=== PATIENT | male | born 1940 | race Caucasian/White ===

== ENCOUNTER 2017-02-12 09:37 | Day surgery (SDC) | payer MEDICARE ==
[2017-02-07 12:08] VITALS: BMI 21.6
[2017-02-12 10:21] LABS: BLOOD UREA NITROGEN 20 mg/dL (7-21); CALCIUM 9.7 mg/dL (8.4-10.5); CARBON DIOXIDE 30 mmol/L (21-33); CHLORIDE 105 mmol/L (98-107); GFR AFRICAN-AMERICAN > 60; GLUCOSE,RANDOM 105 mg/dL (70-110); POTASSIUM 4.2 mmol/L (3.6-5.0); SODIUM 145 mmol/L (132-148)
[2017-02-12 10:30] LABS: INR 1.08 (0.93-1.08); PARTIAL THROMBOPLASTIN TIME 28.1 Seconds (23.7-30.8)
[2017-02-12 10:33] LABS: BASO # 0.01 K/mm3 (0.0-2.0); BASO % 0.1 % (0.0-3.0); EOS # 0.1 (0.0-0.7); EOS % 0.7 % (1.5-5.0); GRAN # 5.17 (1.4-6.5); GRAN % 67.7 % (50.0-68.0); HEMATOCRIT 42.3 % (42.0-52.0); LYMPH # 2.1 (1.2-3.4); MEAN CELL VOLUME 95.3 fl (80.0-105.0); MEAN CORPUSCULAR HGB CONC 33.6 g/dl (31.0-37.0); MEAN PLATELET VOLUME 9.6 fl (7.0-11.0); MONO # 0.3 (0.1-0.6); MONO % 4.5 % (1.0-6.0); RED CELL DISTRIBUTION WIDTH 14.6 % (11.5-14.5); WHITE BLOOD COUNT 7.6 10^3/ul (4.5-11.0)
[2017-02-12] MEDS ORDERED: Midazolam 2 MG/2 ML VIAL ONE ×3 (13:11→16:01)
[2017-02-12] MEDS ORDERED: Lidocaine 2% Inj (20ml) ONE ×2 (13:11→15:48)
[2017-02-12] MEDS ORDERED: Iodixanol 320 MG/ML 100 ML BOTTLE IV ONE ×2 (13:12→17:23)
[2017-02-12] MEDS ORDERED: Nitroglycerin 50mg in D5W 50 MG/250 ML BOTTLE IV ONE (13:12)
[2017-02-12] MEDS ORDERED: Iodixanol 320 MG/ML 200 ML BOTTLE IV ONE (13:12)
[2017-02-12] MEDS ORDERED: Vancomycin 500 mg (Oral/Rectal USE) ONE (17:11)
[2017-02-12] MEDS ORDERED: Oxycodone/Acetaminophen 5/325 mg Tab PO PRN (19:24)
[2017-02-12] MEDS ORDERED: Sodium Chloride 0.45% 1,000 ML IV SCH (19:30)
[2017-02-13 06:14] VITALS: RESP 20; TEMP 97.2; O2SAT 93
[2017-02-13 06:21] LABS: HEMATOCRIT 39.8 % (42.0-52.0); MEAN CORPUSCULAR HEMOGLOBIN 32.5 pg (25.0-35.0); MEAN CORPUSCULAR HGB CONC 34.2 g/dl (31.0-37.0); MEAN PLATELET VOLUME 9.7 fl (7.0-11.0); RED CELL DISTRIBUTION WIDTH 14.8 % (11.5-14.5); WHITE BLOOD COUNT 8.9 10^3/ul (4.5-11.0)
[2017-02-13 06:46] LABS: BLOOD UREA NITROGEN 19 mg/dL (7-21); CARBON DIOXIDE 26 mmol/L (21-33); CHLORIDE 105 mmol/L (95-110); GFR AFRICAN-AMERICAN > 60; GLUCOSE,RANDOM 111 mg/dL (70-110); POTASSIUM 3.5 mmol/L (3.6-5.0); SODIUM 140 mmol/L (132-148)
[2017-02-13] MEDS ORDERED: Midazolam 2 MG/2 ML VIAL ONE (07:08)
[2017-02-13 09:38] VITALS: PULSE 85
[2017-02-13] MEDS ORDERED: Non Formulary Medication (Rosuvastatin Calcium [Crestor] 40 MG) PO SCH (10:00)
[2017-02-13] MEDS ORDERED: Non Formulary Medication (Budesonide/Formoterol Fumarate [Symbicort 160-4.5 Mcg Inhaler] 1 IH SCH (10:00)
[2017-02-13] MEDS ORDERED: Potassium Chloride 10 mEq ER Tab PO SCH (10:00)
[2017-02-13] MEDS ORDERED: Albuterol 0.5% Inhal Sol (2.5 mg/0.5 ml) UD IH SCH (10:00)
[2017-02-13 10:18] VITALS: BP 135/80
--- NOTE | 2017-02-13 19:27 | VASCULAR ---
PROCEDURE: 1. Abdominal aortogram and bilateral lower extremity runoff with left retrograde puncture a and right pedal access 2. Right profunda femoral artery angioplasty 3. Right SFA and popliteal artery recanalization utilizing antegrade and retrograde access with angioplasty and stent placement. 4. Intravascular ultrasound right SFA, popliteal and tibioperoneal trunk 5. Right posterior tibial artery origin angioplasty 6. Right tibioperoneal trunk angioplasty and stent placement HISTORY: Severe peripheral vascular disease. Right foot ischemic rest pain. Multilevel occlusive disease. Poor surgical risk. PHYSICIAN(S): Conner Lino M.D. TECHNIQUE: The relative risks and indications of the procedure were explained to the patient and his and consent obtained. The patient was hydrated prior to the procedure and the appropriate labs drawn. The patient was placed supine on the arteriogram table and the left groin prepped and draped in the usual sterile fashion. Conscious sedation and monitoring were provided throughout the procedure by a nurse. Via a left common femoral artery approach, a 5 Burundian sheath was placed in the left groin. Through the sheath and over a guidewire, a 5 Burundian flush catheter was placed in the abdominal aorta at the level of the renal arteries and a PA DSA abdominal aortogram performed. The catheter was pulled down to the aortic bifurcation and bilateral oblique DSA pelvic arteriograms performed. Overlapping bilateral lower extremity DSA arteriograms were obtained from the inguinal ligaments to the ankles. A 0.035 angled Glidewire was advanced over the bifurcation and placed in the right profunda femoral artery.. A 6 Bur[place]ian 45 cm destination she was placed in the right common femoral artery. Exchange is made for a 0.035 Bobo wire in the right profunda femoral artery. The critical stenoses in the large right profunda femoral artery were dilated with a 6 mm by 8 cm balloon. An excellent angiographic result was obtained. The stump of the occluded right SFA was probed with an angled catheter and 0.035 glidewire. The proximal right SFA was easily gauge. A subintimal tract was developed through the right SFA. Unfortunately, re-entry could not be obtained in the right popliteal artery or trifurcation. Subsequently the right ankle was prepped and draped in usual sterile fashion. Under ultrasound guidance the distal right posterior tibial artery was punctured with a micropuncture set. A 5 Burundian sheath was placed. Vasa dilators were given. A 0.014 guidewire was used to probe the right trifurcation from a retrograde approach. The trifurcation was crossed but re-entry could not be obtained in the right popliteal artery. An out back catheter was placed from the left groin. A 5 mm snare was placed from the right ankle. Eventually access to the terminal right tibioperoneal trunk was obtained with the out back catheter. A 0.014 support wire was placed in the right peroneal artery. The right popliteal artery and right SFA were dilated with a 4 mm balloon. Next the right popliteal artery was dilated with a 5 mm balloon. The right SFA was dilated with a 5 mm balloon distally and a 6 mm balloon proximally. A 4.5 mm by 150 mm supera stent was placed in the right popliteal artery and distal right SFA. A 5.5 by 150 mm supera stent was placed in the mid to distal right SFA. A 6.5 x 120 supera stent was placed in the proximal to mid right SFA. 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 A 6 mm by 100 mm Viabahn stent graft was placed in the right SFA in the adductor canal. Intravascular ultrasound of the right SFA, popliteal, and tibioperoneal trunk revealed an intraluminal and subintimal course that necessitated extensive stent placement. A 3.0 x 30 mm drug coated coronary stent was placed in the right tibioperoneal trunk. The right posterior tibial artery was dilated with 2.5, 3.0, and 3.5 mm coronary balloons. Completion angiograms were obtained. The sheaths were removed hemostasis obtained. The patient tolerated the procedure well.. FINDINGS: There are single renal arteries bilaterally which are widely patent and normal in appearance. The nephrograms are symmetric in appearance. The infrarenal abdominal aorta is calcified and patent. The aortic bifurcation is patent. The common and external iliac arteries are tortuous with multiple areas of mild to moderate stenoses. Radiographically significant stenosis is not appreciated. Internal iliac arteries are patent. There is a significant stenosis of the origin of the left internal iliac artery. Right lower extremity: The right common femoral artery is patent. The right profunda femoral artery is hypertrophied. There are tandem LUBNA critical stenoses in the proximal right profunda femoral artery. The right SFA is occluded at its origin. The right popliteal artery is occluded. There is reconstitution of the terminal right tibioperoneal trunk. The right posterior tibial artery is a predominant supply the right foot. It is large and continuous. The right peroneal artery is patent to the ankle. The right anterior tibial artery is occluded at its origin. Left lower extremity: Left common femoral artery is patent. The left profunda femoral artery is patent. The left superficial femoral artery is diffusely disease with multiple mild stenoses. The left popliteal artery is patent to the trifurcation. There is an occlusion of the terminal left popliteal artery and trifurcation. Reconstitution of the proximal left left peroneal and anterior tibial arteries is seen.. IMPRESSION: 1.Successful recanalization of the right SFA and popliteal arteries as described above. 2. Right tibioperoneal trunk angioplasty and stent placement 3. Right posterior tibial artery origin angioplasty. 4. Intravascular ultrasound of the right SFA, popliteal, and tibioperoneal trunk.
== END 2017-02-13 10:54 | disposition home or self-care (01) ==
LOC: SDS 09:37 → 2RSO 20:10 → SDS 02-13 10:54
PROVIDERS: ATTEND Radiology Vascular & Interventional Radiology
DX: I70.221 Atherosclerosis of native arteries of extremities with rest pain, right leg (principal); I25.10 Atherosclerotic heart disease of native coronary artery without angina pectoris; I11.0 Hypertensive heart disease with heart failure; I50.9 Heart failure, unspecified; Z87.891 Personal history of nicotine dependence
CPT/HCPCS: 36140; 36415 ×2; 37226; 37230; 37252; 37253; 75625; 75716; 80048 ×2; 85025; 85027; 85610; 85730; 99152; 99153; C1725 ×10; C1753; C1760 ×2; C1769 ×6; C1874 ×2; C1876 ×3; C1885; C1887 ×3; C1894 ×2; J1644 ×2; J1940; J2250; J2405; J3010; J7030; Q9967

== ENCOUNTER 2017-09-09 10:08 | Day surgery (SDC) | payer MEDICARE ==
[2017-09-05 13:36] VITALS: BMI 22.6
[2017-09-09 10:45] LABS: BLOOD UREA NITROGEN 21 mg/dL (7-21); CALCIUM 9.9 mg/dL (8.4-10.5); GFR AFRICAN-AMERICAN > 60; GFR NON-AFRICAN AMERICAN > 60
[2017-09-09 10:48] LABS: BASO # 0.01 K/mm3 (0.0-2.0); BASO % 0.2 % (0.0-3.0); EOS # 0.1 (0.0-0.7); EOS % 0.8 % (1.5-5.0); GRAN # 3.6 (1.4-6.5); GRAN % 57.4 % (50.0-68.0); LYMPH # 2.3 (1.2-3.4); LYMPH % 35.9 % (22.0-35.0); MEAN CELL VOLUME 94.6 fl (80.0-105.0); MEAN CORPUSCULAR HEMOGLOBIN 32.6 pg (25.0-35.0); MEAN CORPUSCULAR HGB CONC 34.5 g/dl (31.0-37.0); MEAN PLATELET VOLUME 9.9 fl (7.0-11.0); MONO # 0.4 (0.1-0.6); MONO % 5.7 % (1.0-6.0); RBC 4.6 10^6/uL (3.5-6.1); RED CELL DISTRIBUTION WIDTH 13.9 % (11.5-14.5); WHITE BLOOD COUNT 6.3 10^3/ul (4.5-11.0)
[2017-09-09 10:54] LABS: INR 1.12 (0.93-1.08); PARTIAL THROMBOPLASTIN TIME 27.1 Seconds (25.1-36.5); PROTHROMBIN TIME 12.9 SECONDS (9.4-12.5)
[2017-09-09] MEDS ORDERED: Lidocaine 2% Inj (20ml) ONE (14:18)
[2017-09-09] MEDS ORDERED: Midazolam 2 MG/2 ML VIAL ONE ×3 (14:19→15:11)
[2017-09-09] MEDS ORDERED: Iodixanol 320 MG/ML 100 ML BOTTLE IV ONE (14:20)
[2017-09-09] MEDS ORDERED: Iodixanol 320 MG/ML 200 ML BOTTLE IV ONE (14:20)
[2017-09-09] MEDS ORDERED: Nitroglycerin 50mg in D5W 50 MG/250 ML BOTTLE IV ONE (14:21)
[2017-09-09] MEDS ORDERED: Vancomycin 500 mg (Oral/Rectal USE) ONE (15:02)
[2017-09-09] MEDS ORDERED: Iodixanol 320 mg/ml 150 ml Bottle IV ONE (15:19)
[2017-09-09] MEDS ORDERED: Oxycodone/Acetaminophen 5/325 mg Tab PO PRN (16:49)
[2017-09-09] MEDS ORDERED: Sodium Chloride 0.45% 1,000 ML IV SCH (17:00)
[2017-09-09 17:14] VITALS: RESP 18
[2017-09-09 17:37] VITALS: TEMP 97.8
[2017-09-09 18:56] VITALS: BP 110/69; PULSE 82; O2SAT 95
--- NOTE | 2017-09-09 18:59 | VASCULAR ---
PROCEDURE: 1. Abdominal aortogram and bilateral lower extremity runoff with right selective images. 2. Right external iliac artery angioplasty and stent placement. 3. Long segment right SFA and popliteal artery stent drug-eluting balloon angioplasty 4. Right tibioperoneal trunk drug-eluting balloon angioplasty. 5. Selective bilateral carotid angiograms. HISTORY: Severe peripheral vascular disease. Recurrent right foot ischemia. Obviously placed extensive right lower extremity stents. Re- stenosis. Severe bilateral carotid stenoses on duplex ultrasound. PHYSICIAN(S): Conner Lino M.D. TECHNIQUE: The relative risks and indications of the procedure were explained to the patient and his and consent obtained. The patient was hydrated prior to the procedure and the appropriate labs drawn. The patient was placed supine on the arteriogram table and the left groin prepped and draped in the usual sterile fashion. Conscious sedation and monitoring were provided throughout the procedure by a nurse. Via a left common femoral artery approach, a 5 Maltese sheath was placed in the left groin. Through the sheath and over a guidewire, a 5 Maltese day this catheter was placed in the right common carotid artery in multiple DSA intra and extracranial views obtained. Unfortunately the images were severely degraded by motion and swallowing. Next a catheter was placed in the mid left common carotid artery and DSA arteriograms of the intra and extracranial circulation performed. Exchange is made for a flush catheter which was placed in the distal abdominal aorta. Bilateral oblique abdominal and pelvic arteriograms were performed. Overlapping bilateral lower extremity DSA arteriograms were obtained from the inguinal ligaments to the ankles. With some difficulty, the long segment right SFA and popliteal stents were cannulated with a 5 Maltese catheter and angled Glidewire. The wire was advanced into the right peroneal artery. Exchange is made for a 0.035 support wire. Heparin and nitroglycerin were given. The stent in the right tibioperoneal trunk was dilated with 4 mm drug-eluting balloon. The right popliteal artery was dilated with a 5 mm drug-eluting balloon. Overlapping 6 and 7 mm drug-eluting balloons were used throughout the above knee popliteal artery and right SFA stents. There was mild residual stenosis but brisk antegrade flow. No additional stents were placed in the right SFA or popliteal arteries. There is severe multifocal disease involving the right external iliac artery. This was dilated with a 7 mm balloon. 8 mm x 8 cm Nitinol stent was placed in the right external iliac artery. It was subsequent dilated with an 8 mm balloon. The sheath was removed hemostasis obtained with a Perclose device. The patient tolerated the procedure well. FINDINGS: The distal abdominal aorta and aortic bifurcation are patent. The common iliac arteries are smoothly diseased but patent. There is irregularity and tortuosity of both external iliac arteries. Multi focal moderate to severe stenoses of the right external iliac artery are noted. Similar moderate stenoses of the left external iliac artery are present. The right common femoral artery is patent. A stent protrudes into the terminal right common femoral artery. The right profunda femoral artery has a moderate stenosis at its origin. The previously dilated right profunda femoral artery is otherwise patent. There is severe diffuse in stent stenosis throughout a majority of the right SFA and popliteal arteries. In addition there is stenoses of the right tibioperoneal trunk. Two vessel runoff via the right peroneal and posterior tibial artery is once again seen. The left common femoral artery is diseased but patent. Left profunda femoral artery is patent. The left SFA is smoothly diseased widely patent with mild disease distally. The left popliteal artery occludes at the trifurcation. There is critical disease of the left trifurcation. There is faint reconstitution of the diseased proximal left posterior tibial artery. The left anterior tibial and peroneal arteries are not well seen. As mentioned previously, these selective carotid angiograms are very limited by motion and swallowing. Is a 70 percent stenosis of the right internal carotid artery 3 cm from its origin. There is a critical stenosis in the origin of the right external carotid artery. There is an 80 percent stenosis of the left internal carotid artery 3 cm from its origin. IMPRESSION: 1.Successful drug-eluting balloon angioplasty of the right tibioperoneal trunk, right popliteal artery, and right SFA stents. 2. Successful right external iliac artery angioplasty and stent placement. 3. Limited selective carotid arteriograms. There is a 70 percent stenosis of the right internal carotid artery 3 cm from the origin. There is an 80 percent stenosis of the proximal left internal carotid artery 3 cm from its origin.
== END 2017-09-09 19:10 | disposition home or self-care (01) ==
LOC: SDSVAS 10:08
PROVIDERS: ATTEND Radiology Vascular & Interventional Radiology
DX: I73.9 Peripheral vascular disease, unspecified (principal); I65.23 Occlusion and stenosis of bilateral carotid arteries; I25.10 Atherosclerotic heart disease of native coronary artery without angina pectoris; Z95.1 Presence of aortocoronary bypass graft; J44.9 Chronic obstructive pulmonary disease, unspecified; Z88.0 Allergy status to penicillin
CPT/HCPCS: 36223; 36415; 37221; 37224; 37228; 75625; 75716; 80048; 85025; 85610; 85730; 99152; 99153; C1725 ×7; C1760 ×2; C1769 ×5; C1876; C1887 ×4; C1894; J1644 ×2; J2250; J2405; J3010; J7030; Q9966; Q9967